=== PATIENT | male | born 1975 | race Caucasian/White ===

== ENCOUNTER 2016-07-08 15:56 | Emergency (ER) | payer MEDICARE ==
[2016-07-08 17:06] LABS: BASO # 0.1 10_X3_uL (0.0-0.1); BASO % 0.6 % (0.2-1.2); EOS # 0.2 10_X3_uL (0.0-0.5); EOS % 2.2 % (0.8-7.0); GRAN % 73.4 % (34.0-67.9); HEMATOCRIT 43.6 % (40-51); HEMOGLOBIN 14.8 g/dL (13.7-17.5); LYMPH # 1.8 10_X3_uL (1.3-3.6); LYMPH % 16.8 % (21.8-53.1); MEAN CORPUSCULAR HEMOGLOBIN 31.1 pg (27.0-33.0); MEAN CORPUSCULAR HGB CONC 33.9 g/dL (32.0-36.0); MEAN CORPUSCULAR VOLUME 91.6 fL (79-92); MEAN PLATELET VOLUME 10.1 fl (7.5-11.5); MONO # 0.8 10_X3_uL (0.3-0.8); PLATELET COUNT 305 x10_3/uL (163-337); RED BLOOD COUNT 4.76 x10_6/uL (4.6-6.1); RED CELL DISTRIBUTION WIDTH 13.2 % (11.6-14.4); WHITE BLOOD COUNT 10.8 x10_3/uL (4.2-9.1)
[2016-07-08 17:22] LABS: ALBUMIN 4.6 gm/dL (3.4-5.0); ALKALINE PHOSPHATASE 98 U/L (50-136); ALT/SGPT 43 U/L (7.53-40.17); AST/SGOT 20 U/L (6.66-35.34); BILIRUBIN,TOTAL 0.37 mg/dL (0.0-1.0); BLOOD UREA NITROGEN 9 mg/dL (7-18); CALCIUM 9.5 mg/dL (8.7-10.7); CARBON DIOXIDE 27 mmol/L (21-32); CREATINE KINASE 38 U/L (35-232); CREATININE 0.7 mg/dL (0.6-1.3); GLUCOSE,RANDOM 81 mg/dL (70-99); POTASSIUM 3.9 mmol/L (3.5-5.1); SODIUM 139 mmol/L (136-145)
== END 2016-07-08 18:38 | disposition home or self-care (01) ==
LOC: ER 15:56
PROVIDERS: Internal Medicine
DX: R07.89 Other chest pain (principal); R00.0 Tachycardia, unspecified; F32.9 Major depressive disorder, single episode, unspecified; I10 Essential (primary) hypertension; Z79.899 Other long term (current) drug therapy; Z88.1 Allergy status to other antibiotic agents
CPT/HCPCS: 36415; 71010; 80053; 82550; 82553; 85025; 93005; 96372; 99070; 99285-25